=== PATIENT | male | born 1980 | race Caucasian/White ===

== ENCOUNTER → 2021-02-13 13:20 | Outpatient (CLI) | payer OTHER, MEDICAID, SELFPAY ==
--- NOTE | 2021-02-13 | DI.ECHO.S_ITS ---
[facility]---------+ [facility] +---------+ : : [address] : [place] : : : : [id number] : : : : Phone: [phone] +---------+ Echocardiogram Report + + :Name: RYLAN JUNE Study Date: 02/13/2021 Height: 72 in : :[facility] ReadingLocation: Weight: 250 lb : : Gender: Male BSA: 2.3 m2 : :: 1980 Age: 40 yrs BP: 142/93 mmHg: :Reason For Study: Atrial fibrillation : :Ordering Physician: Ector : :Tory Hernández Performed By: Sterling Spangler : :Referring: ECTOR HERNÁNDEZ : + + Interpretation Summary The study quality was technically difficult. A contrast injection of Definity was performed to improve assessment of LV function. The left ventricle is mildly dilated. Left ventricular systolic function is mildly reduced. Left ventricular ejection fraction is estimated to be 45 +/- 5%. There is mild global hypokinesis of the left ventricle. There is no significant valvular heart disease. Procedure: A two-dimensional transthoracic echocardiogram with color flow and Doppler was performed. Comparison is made with the echocardiogram of 12/21/2019. A contrast injection of Definity was performed to improve assessment of LV function. The study quality was technically difficult. Left Ventricle: The left ventricle is mildly dilated. Left ventricular systolic function is mildly reduced. Left ventricular ejection fraction is estimated to be 45 +/- 5%. There has been no significant change since the previous exam. There is mild global hypokinesis of the left ventricle. Diastolic function could not be accurately assessed due to atrial fibrillation. Right Ventricle: The right ventricle is normal in size and function. Atria: Both atria are normal in size. There is no Doppler evidence for an interatrial shunt. Mitral Valve: The mitral valve is normal in structure and function. There is no mitral regurgitation noted. Aortic Valve: The aortic valve is normal in structure and function. No aortic regurgitation is present. Tricuspid Valve: The tricuspid valve is normal in structure and function. No tricuspid regurgitation. Pulmonary artery pressures cannot be estimated because of the lack of a measurable TR jet velocity. Pulmonic Valve: The pulmonic valve is normal in structure and function. There is no pulmonic valvular regurgitation. Great Vessels: The aortic root is normal size. The dimensions of the ascending aorta are normal. The inferior vena cava was not well visualized. Pericardium/ Pleura There is no pericardial effusion. There is no pleural effusion. MMode/2D Measurements & Calculations LVIDd: 6.0 cm LVOT diam: 2.4 cm LVIDs: 4.6 cm Ao root diam: 3.3 cm FS: 23.4 % asc Aorta Diam: 3.1 cm IVSd: 1.0 cm LVPWd: 1.1 cm LV gudino. diameter/BSA (cm/m^2): 2.6 LV sys. diameter/BSA (cm/m^2): 2.0 LA dimension: 4.8 cm RA long axis: 5.1 cm LA A2 area: 22.8 cm2 RA area: 17.2 cm2 LA A4 area: 21.5 cm2 RA vol: 49.7 ml LA length (vol): 6.3 cm RA : 21.2 ml/m2 LA vol: 66.3 ml LA vol index: 28.3 ml/m2 RVD1 (basal): 3.1 cm LVLs ap4: 8.8 cm LVLd ap2: 9.3 cm TAPSE_phl: 2.3 cm LVLs ap2: 8.0 cm Doppler Measurements & Calculations Ao V2 max: 122.0 cm/sec LVOT Max Jerald: 86.2 cm/sec Ao V2 mean: 87.1 cm/sec LV V1 max P.0 mmHg Ao max P.0 mmHg LV V1 VTI: 17.8 cm Ao mean P.0 mmHg ANNE(I,D): 3.8 cm2 Ao V2 VTI: 21.1 cm ANNE(V,D): 3.2 cm2 sev ratio: 0.84 ANNE indexed to BSA (cm^2/m^2): 1.6 PA V2 max: 100.0 cm/sec SV(LVOT): 80.5 ml PA V2 mean: 78.0 cm/sec PA mean P.0 mmHg PA pr(Accel): 40.8 mmHg AV VR_phl: 0.71 ANNE(VTI)/BSA_phl: 1.6 Reading Physician:10:51 AM
== END ==
PROVIDERS: Referring Provider Internal Medicine Cardiovascular Disease; Visit Provider Internal Medicine Cardiovascular Disease
DX: I48.20 Chronic atrial fibrillation, unspecified (principal)
CPT/HCPCS: C8929; Q9957

== ENCOUNTER → 2022-08-07 13:31 | Outpatient (CLI) | payer OTHER, MEDICAID, SELFPAY ==
--- NOTE | 2022-08-07 | DI.ECHO.S_ITS ---
[facility] +---------+ [facility] +---------+ : : [address] : : : [place] : : : : [id number] : : : : Phone: [phone] +---------+ Echocardiogram Report + + :Name: RYLAN JUNE Study Date: 08/07/2022 Height: 72 in : :[facility] ReadingLocation: Weight: 270 lb : : Gender: Male BSA: 2.4 m2 : :: 1980 Age: 41 yrs BP: 138/85 mmHg: :Reason For Study: Atrial Fibrillation : :Ordering Physician: Gonzalez : :Tory Hernández Performed By: Lelo Daugherty : :Referring: Gonzalez Hernández : + + Interpretation Summary Left ventricular ejection fraction is estimated to be 35 +/- 5%. There is mild to moderate global hypokinesis of the left ventricle. There is anterior wall severe hypokinesis. There is inferior wall hypokinesis. The right ventricle is mildly dilated. Left ventricular function has mildly worsened compared to the previous exam. There is no significant valvular heart disease. Procedure: A two-dimensional transthoracic echocardiogram with color flow and Doppler was performed. The study quality was technically adequate. The patient was in atrial fibrillation with heart rates between 94-117 bpm during the exam. Left Ventricle: The left ventricle is normal in size and wall thickness. There has been no significant change since the previous study. Left ventricular ejection fraction is estimated to be 35 +/- 5%. Left ventricular function has mildly worsened compared to the previous exam. There is mild to moderate global hypokinesis of the left ventricle. There is anterior wall severe hypokinesis. There is inferior wall hypokinesis. Diastolic function could not be accurately assessed due to atrial fibrillation. Right Ventricle: The right ventricle is mildly dilated. The right ventricular systolic function is normal. Atria: The left atrium is moderately dilated. The right atrium is borderline dilated. There is no Doppler evidence for an interatrial shunt. Mitral Valve: The mitral valve is normal in structure and function. There is no mitral regurgitation noted. Aortic Valve: The aortic valve is normal in structure and function. No aortic regurgitation is present. Tricuspid Valve: The tricuspid valve is normal in structure and function. No tricuspid regurgitation. Pulmonary artery pressures cannot be estimated because of the lack of a measurable TR jet velocity. Pulmonic Valve: The pulmonic valve leaflets are thin and pliable; valve motion is normal. There is no pulmonic valvular regurgitation. Great Vessels: The aortic root is borderline dilated. The ascending aorta is normal in size. MMode/2D Measurements & Calculations LVIDd: 6.4 cm LVOT diam: 2.2 cm LVIDs: 5.1 cm Ao root diam: 3.5 cm FS: 20.6 % asc Aorta Diam: 3.4 cm EPSS: 1.0 cm IVSd: 0.97 cm LVPWd: 0.81 cm LV gudino. diameter/BSA (cm/m^2): 2.7 LV sys. diameter/BSA (cm/m^2): 2.1 LA A2 area: 34.6 cm2 RA long axis: 5.8 cm LA A4 area: 28.6 cm2 RA area: 22.8 cm2 LA length (vol): 6.5 cm RA vol: 76.2 ml LA vol: 129.9 ml RA : 31.5 ml/m2 LA vol index: 53.7 ml/m2 IVC diam: 2.3 cm RVD1 (basal): 4.9 cm TAPSE: 2.0 cm Doppler Measurements & Calculations Ao V2 max: 120.1 cm/sec LVOT Max Jerald: 73.8 cm/sec Ao V2 mean: 92.0 cm/sec LV V1 max P.2 mmHg Ao max P.8 mmHg LV V1 VTI: 10.9 cm Ao mean P.6 mmHg ANNE(I,D): 1.9 cm2 Ao V2 VTI: 21.6 cm ANNE(V,D): 2.3 cm2 sev ratio: 0.50 ANNE indexed to BSA (cm^2/m^2): 0.77 MV E max jerald: 92.9 cm/sec PA V2 max: 80.9 cm/sec MV A max jerald: 53.9 cm/sec PA V2 mean: 62.3 cm/sec MV E/A: 1.7 PA mean P.7 mmHg Med Peak E' Jerald: 9.0 cm/sec E/E' med: 10.3 MV dec time: 0.22 sec MVA(VTI): 2.8 cm2 MV V2 mean: 57.3 cm/sec SV(LVOT): 40.3 ml MV mean P.7 mmHg MV V2 VTI: 14.4 cm Reading Physician:09:09 AM
== END ==
PROVIDERS: Referring Provider Internal Medicine Cardiovascular Disease; Visit Provider Internal Medicine Cardiovascular Disease
DX: I48.20 Chronic atrial fibrillation, unspecified (principal)
CPT/HCPCS: 93306

== ENCOUNTER → 2025-02-21 10:27 | Outpatient (CLI) | payer OTHER, SELFPAY ==
--- NOTE | 2025-02-21 10:29 | DI.ECHO.S_ITS ---
[facility] +---------+ [facility] : : [address] : : [place] : : [id number] : : Phone: [phone] Echocardiogram Report + + :Name: RYLAN JUNE Study Date: 02/21/2025 Height: 73 in : :Hospital ReadingLocation: Weight: 270 lb : : Gender: Male BSA: 2.4 m2 : :: 1980 Age: 44 yrs BP: 117/90 mmHg: :Reason For Study: A-Fib, Cardiomyopathy : :Ordering Physician: CHRYSTAL, : :MURTAZA Performed By: Homar Holman : :Referring: MURTAZA CHONG : + + Interpretation Summary 1) Normal left ventricular size with mildly to moderately reduced systolic function (EF 40-45%). 2) Normal right ventricular size with mildly reduced function. There is a pacemaker lead in the right ventricle, 3) No significant valvular abnormalities. 4) Atrial fibrillation with ventricular rates between 94-129bpm present during the study. 5) Compared to the Echo done 02/13/2021, no significxant change. Procedure: A two-dimensional transthoracic echocardiogram with color flow and Doppler was performed. The study quality was technically adequate. The subcostal views were difficult to obtain and are suboptimal in quality. Comparison is made with the echocardiogram of 02/13/2021. The patient was in atrial fibrillation with heart rates between 94-129 bpm during the exam. Left Ventricle: The left ventricle is normal in size. Left ventricular wall thickness is mildly increased. The ejection fraction is estimated to be 40- 45%. Beat to beat variability with the atrial fibrillation, make it difficult to calculate an ejection fraction. There is mild to moderate global hypokinesis of the left ventricle. Indeterminate diastolic function due to atrial fibrillation. Right Ventricle: The right ventricle is normal size. There is a pacemaker lead in the right ventricle. Right ventricular systolic function is mildly reduced. Atria: The left atrium is moderately dilated. The right atrium is moderately dilated. There is no Doppler evidence for an interatrial shunt. Mitral Valve: The mitral valve leaflets appear to open well. There is no mitral valve stenosis. There is trace mitral regurgitation. Aortic Valve: The aortic valve is trileaflet. The aortic valve opens well. There is no aortic valve stenosis. No aortic regurgitation is present. Tricuspid Valve: The tricuspid valve is not well visualized, but is grossly normal. There is trace tricuspid regurgitation. Pulmonary artery pressures cannot be estimated because of the lack of a measurable TR jet velocity. Pulmonic Valve: The pulmonic valve is not well seen, but is grossly normal. There is trace pulmonic regurgitation. Great Vessels: The aortic root is normal size. The ascending aorta is normal in size. The aortic arch could not be visualized. The inferior vena cava was not visualized. Pericardium/ Pleura There is no pericardial effusion. MMode/2D Measurements & Calculations LVIDd: 6.2 cm LVOT diam: 2.3 cm LVIDs: 4.7 cm Ao root diam: 2.8 cm FS: 24.5 % asc Aorta Diam: 2.9 cm IVSd: 1.2 cm LVPWd: 1.2 cm LV gudino. diameter/BSA (cm/m^2): 2.5 LV sys. diameter/BSA (cm/m^2): 1.9 LA A2 area: 26.6 cm2 RA long axis: 6.0 cm LA A4 area: 31.3 cm2 RA area: 23.5 cm2 LA length (vol): 6.8 cm RA vol: 78.6 ml LA vol: 103.4 ml RA : 32.2 ml/m2 LA vol index: 42.3 ml/m2 RVD1 (basal): 3.3 cm RVD2 (mid): 3.2 cm TAPSE: 1.3 cm Doppler Measurements & Calculations Ao V2 max: 111.6 cm/sec LVOT Max Jerald: 86.7 cm/sec Ao V2 mean: 84.5 cm/sec LV V1 max P.0 mmHg Ao max P.0 mmHg LV V1 VTI: 14.8 cm Ao mean P.0 mmHg ANNE(I,D): 3.2 cm2 Ao V2 VTI: 19.1 cm ANNE(V,D): 3.2 cm2 sev ratio: 0.78 ANNE indexed to BSA (cm^2/m^2): 1.3 MV E max jerald: 86.0 cm/sec PA pr(Accel): 13.9 mmHg Med Peak E' Jerald: 9.7 cm/sec E/E' med: 8.8 Lat Peak E' Jerald: 10.2 cm/sec E/E' lat: 8.4 E/e' average: 8.6 MV dec time: 0.21 sec SV(LVOT): 61.1 ml Reading Physician:06:42 PM
== END ==
LOC: ECHO 10:28
PROVIDERS: Referring Provider Internal Medicine Cardiovascular Disease; Visit Provider Internal Medicine Cardiovascular Disease
DX: I42.8 Other cardiomyopathies (principal)
CPT/HCPCS: 93306